=== PATIENT | female | born 2000 ===

== ENCOUNTER 2023-08-19 13:21 | Outpatient (AMB) | payer OTHER, SELFPAY ==
--- NOTE | 2023-08-19 13:36 | AM.OFFWIN_ITS ---
Intake Vital Signs 08/19/23 13:43 Height 5 ft 2 in Weight 203 lb 8 oz BMI 37.2 BP 98/80 Blood Pressure Location Lt brachial Position Sitting Respiration 14 Pulse 64 Pulse Source Palpation Temp 98.8 F Temp Source Oral Intake Visit Reasons: Personal concerns Intake Note: Has Autoimmune urticaria and has been out of work since 07/13/23. Last episode was 07/03/2023. Patient Tobacco Use Status: Never used Tobacco [employer] Required: No Is last menstrual period known: No Patient : No Allergies No Known Allergies Allergy (Verified 08/19/23 13:40) Medication List - Last Reconciled 08/19/23 by Rosy Ramos PA-C cetirizine (Zyrtec) 10 mg PO DAILY PRN diphenhydramine HCl (Benadryl) 25 mg PO BEDTIME PRN epinephrine mL IM loratadine (Claritin) 10 mg PO DAILY HPI Personal concerns HPI Details Patient is a 23-year-old female who presents today to the walk-in clinic with concerns of urticaria. States that she has a history autoimmune urticaria, anxiety and depression but has not followed with a PCP in a couple years. 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 She states that on 08/12 she decided to apply for medical leave. She states that she has 2 different options for her medical leave. She states that as a black woman at her job she has a lot of stress and feels discriminated against. She states it is a hostile environment. She states that with the stressors there she feels like this is a detriment to her mental health. She has made some complaints and states that nothing has changed. She tells me that it is just her feelings and that the instances that have bothered her were brought up to her boss but she states that the conversations made her feel unimportant. She has been there since January and it is stressful for her because it has also an [place] a half away. She recently moved into her grandmother's house with other family members and states that they are ?a lot of people ?living there. She states that she is used to having her own space and that this has also contributed to her mental health issues. She states that work should feel like a break from her real life and it does not. She saw a therapist today for the 1st time. She states that she had a good encounter. She has not on medications for this. 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 She does not think she is ever seen an optics engineer but would like to see Allergy and immunology. She does have an EpiPen but needs a refill as hers is . She has not experienced any swelling of the throat or lips but has had hives on the face. She uses Zyrtec and Claritin as needed. She will sometimes use Benadryl as well. She does not take anything consistently. She also has complained at work that she thinks the building contributes to allergies and her urticaria. She has not tried taking something consistently prior to going to work. She has had to go to the ER a couple times for the urticaria after being at work. No fever, chills, chest pain, shortness on breath or wheezing. No SI/HI. No visual or auditory hallucinations. [facility] Medical History (Updated 08/19/23 @ 14:21 by Rosy Ramos PA-C) Anxiety with depression Autoimmune urticaria Social History Patient Tobacco Use Status: Never used Tobacco Patient : No Physical Exam Vital Signs: Last Vital Signs Temp 98.8 F 08/19/23 13:43 Pulse 64 08/19/23 13:43 Resp 14 08/19/23 13:43 BP 98/80 08/19/23 13:43 BMI result Body Mass Index 37.2 Const Orientation/consciousness: patient oriented x3 HEENT Ears: hearing grossly normal bilaterally Neck Thyroid: Thyroid normal Lymphatic: no lymphadenopathy noted Resp Auscultation: clear to auscultation bilaterally Cardio Rate: regular rate Rhythm: regular rhythm Heart sounds: S1 normal heart sound present and S2 normal heart sound present GI Inspection: Yes normal to inspection Palpation (GI): Soft to palpation and Other GI palpation findings present (nontender, no cva tenderness) Auscultation: normoactive bowel sounds Rectal Exam - Female: deferred Skin General skin exam: no rashes or lesions noted Neuro General: patient oriented x3, gait normal and no focal motor deficits Assessment & Plan Assessment & Plan (1) Autoimmune urticaria: Code(s): L50.8 - Other urticaria Plan: Referral to Allergy and immunology. Phone number and address provided to lauren. Advised patient that she should see a PCP. I did refill her EpiPen. (2) Anxiety with depression: Code(s): F41.8 - Other specified anxiety disorders Plan: Following with behavioral health. She is going to follow up with a PCP or sooner if needed if anything worsens or changes. Patient understands and agrees with this plan.. Orders: Referrals Allergy & Immunology Referral F41.8 - Other specified anxiety disorders, L50.8 - Other urticaria Medications: New epinephrine (EpiPen 2-Carlo) 0.3 mg (0.3 mL) IM ONCE PRN 2 ea 0RF anaphylaxis Coding Level of Care Code New Pt Level 2 (56243) Diagnoses Autoimmune urticaria L50.8 Anxiety with depression F41.8
[2023-08-19 13:43] VITALS: BP 98/80; PULSE 64; RESP 14; TEMP 37.1; BMI 37.2
== END 2023-08-19 14:25 | disposition home or self-care (01) ==
PROVIDERS: Visit Provider Physician Assistant
DX: L50.8 Other urticaria (principal); F41.8 Other specified anxiety disorders
CPT/HCPCS: 99204